=== PATIENT | male | born 2000 | race Caucasian/White ===

== ENCOUNTER 2022-11-12 00:35 | Emergency (ER) | payer SELFPAY ==
[2022-11-12] MEDS ORDERED: Dextrose 50% Abboject 50 ML SYRINGE ONE (00:54)
[2022-11-12] MEDS ORDERED: Lactated Ringer's 1,000 ML ONE (00:58)
[2022-11-12] MEDS ORDERED: Thiamine HCl 200 MG/2 ML VIAL ONE (01:11)
[2022-11-12] MEDS ORDERED: Hydrocortisone Sod Succ/PF 100 mg/2 ml Vial ONE (01:11)
[2022-11-12 01:29] LABS: #Basophils 0.1 thou/uL (0.0-0.2); #Lymphocytes 1.1 thou/uL (1.20-3.40); #Monocytes 1.5 thou/uL (0.11-0.59); #Neutrophils 9.7 thou/uL (1.40-6.50); %Basophils 0.7 % (0.0-1.0); %Eosinophils 0.2 % (0.0-10.0); %Lymphocytes 8.5 % (21.0-51.0); %Monocytes 11.8 % (0.0-10.0); %Neutrophils 78.8 % (42.0-75.0); Hemoglobin 13.3 g/dL (14.0-18.0); Mean Corpuscular Hemoglobin 29.8 pg (27.0-31.0); Mean Corpuscular Volume 87.7 fl (78.0-98.0); Mean Platelet Volume 11.5 fL (7.4-10.4); Platelet Count 229 10x3/uL (130-400); RBC Distribution Width 12.2 % (11.5-14.5); Red Blood Cell (RBC) Count 4.47 mill/uL (4.70-6.10); White Blood Cell (WBC) Count 12.3 10x3/uL (4.8-10.8)
[2022-11-12] MEDS ORDERED: Sodium Chloride 0.9% 100 ML ONE (01:29)
[2022-11-12] MEDS ORDERED: Dextrose 5 % And 0.9 % NaCl 1,000 ML ONE (01:29)
[2022-11-12] MEDS ORDERED: Dextrose 5% in Water 250 ML ONE (01:29)
[2022-11-12] MEDS ORDERED: Vancomycin 1 GM VIAL ONE (01:30)
[2022-11-12] MEDS ORDERED: Cefepime 1 GM VIAL ONE (01:30)
[2022-11-12] MEDS ORDERED: Ondansetron PF 4 MG/2 ML Vial ONE (01:33)
[2022-11-12 01:38] LABS: INR-International Normal Ratio 1.5; Prothrombin Time 19.2 sec (12.0-14.7)
[2022-11-12 01:39] LABS: PTT 52.1 sec (22.9-36.1)
[2022-11-12 01:53] LABS: ALT (SGPT) 16 U/L (8-55); AST (SGOT) 24 U/L (5-34); Albumin 3.9 g/dL (3.5-5.0); Alkaline Phosphatase 62 U/L (40-110); Anion Gap 31 mmol/L (10-20); BUN (Urea Nitrogen) 42 mg/dL (8.9-20.6); Bilirubin, Total 0.6 mg/dL (0.2-1.2); Calc. Creatinine Clearance 0 mL/min (70-130); Calcium 9.9 mg/dL (7.8-10.44); Carbon Dioxide 14 mmol/L (22-29); Chloride 86 mmol/L (98-107); Estimated GFR 28; Globulin 2.8 g/dL (2.4-3.5); Glucose 248 mg/dL (70-105); Lipase 10 U/L (8-78); Magnesium 1.7 mg/dL (1.6-2.6); Potassium 5.9 mmol/L (3.5-5.1); Protein, Total 6.7 g/dL (6.0-8.3); Sodium 125 mmol/L (136-145)
[2022-11-12 02:08] LABS: CKMB 12.2 ng/mL (0-6.6)
[2022-11-12 02:29] LABS: SARS-CoV-2 NAA Rapid Test Not Detected (NotDetected)
[2022-11-12] MEDS ORDERED: Insulin Regular 300 UNITS/3 ML VIAL ONE (02:40)
[2022-11-12] MEDS ORDERED: INSULIN REGULAR IN 0.9 % NACL 100 UNITS/100 ML BAG ONE (03:05)
[2022-11-12 03:07] LABS: Base Excess-Venous -12.9 mmol/L (-2.0 to 3.0); Bicarbonate (HCO3v) 13.7 mmol/L (22.0-28.0); CO2 Tension (PvCO2) 33.2 mmHg (42.0-51.0)
[2022-11-12 03:08] LABS: Calcium, Ionized 0.94 mmol/L (1.15-1.33); Chloride 94 mmol/L (98-107); Hemoglobin - Calc 10.6 g/dL (14.0-18.0); Potassium 5.4 mmol/L (3.5-5.1); Sodium 120 mmol/L (138-145); T. Carbon Dioxide 14.7 mmol/L (22.0-28.0); vO2 Saturation-calc 74.4 % (60.0-85.0)
[2022-11-12 03:25] LABS: Acetaminophen Less than 10.0 mcg/mL (10.0-30.0); Alcohol Less than 10 mg/dL (Less than 10); Salicylate Less than 8.0 mg/dL (15.0-30.0)
[2022-11-12 04:06] LABS: Bilirubin Negative (Negative); Blood, Urine Moderate (Negative); Clarity Clear (Clear); Glucose, Urine (Dipstick) 500 mg/dL (Negative); Ketone, Urine > or equal to 80 mg/dL (Negative); Leukocyte Negative (Negative); Nitrite Negative (Negative); Protein, Urine (Dipstick) Trace mg/dL (Neg-Trace); Urobilinogen 0.2 mg/dL (Less than 2)
[2022-11-12 04:09] LABS: Squamous Epithelial 0-3 HPF (0-3); WBC/HPF 0-3 HPF (0-3)
[2022-11-12 04:10] LABS: RBC/HPF 0-3 HPF (0-3)
[2022-11-12 04:14] LABS: Amphetamine Not Detected (NotDetected); Barbiturates Screen Not Detected (NotDetected); Benzodiazepine Screen Not Detected (NotDetected); Cocaine Metabolite Screen Not Detected (NotDetected); Methadone Not Detected (NotDetected); Methamphetamine Not Detected (NotDetected); Opiate Screen Not Detected (NotDetected); Oxycodone Screen Not Detected (NotDetected); Phencyclidine (PCP) Not Detected (NotDetected); THC/Cannabinoid Screen Not Detected (NotDetected); Tricyclic Screen Not Detected (NotDetected)
[2022-11-12 04:29] LABS: Lactic Acid 1.3 mmol/L (0.5-2.2)
[2022-11-12 04:31] LABS: Anion Gap 23 mmol/L (10-20); BUN (Urea Nitrogen) 40 mg/dL (8.9-20.6); Calc. Creatinine Clearance 0 mL/min (70-130); Calcium 8.5 mg/dL (7.8-10.44); Carbon Dioxide 14 mmol/L (22-29); Chloride 94 mmol/L (98-107); Estimated GFR 36; Glucose 352 mg/dL (70-105); Potassium 4.3 mmol/L (3.5-5.1); Sodium 127 mmol/L (136-145)
[2022-11-12] MEDS ORDERED: Sodium Chloride 0.9% 1,000 ML BAG ONE (08:49)
== END 2022-11-12 04:44 | disposition short-term general hospital (02) ==
LOC: MADERS 00:35
DX: A41.9 Sepsis, unspecified organism (principal); N17.9 Acute kidney failure, unspecified; E10.10 Type 1 diabetes mellitus with ketoacidosis without coma; R77.8 Other specified abnormalities of plasma proteins; E03.9 Hypothyroidism, unspecified; Z79.4 Long term (current) use of insulin; Z79.899 Other long term (current) drug therapy; Z20.822 Contact with and (suspected) exposure to COVID-19
CPT/HCPCS: 36416; 71045; 74176; 80053; 80306; 80307; 81003; 81015; 82010; 82330; 82550; 82553; 82803; 83605; 83690; 83735; 84443; 84484; 85025; 85610; 85730; 87040; 87086; 93005; 94760; 96361; 96365; 96367; 96375; 36415-59; J0692; J1720; J1815; J2405; J3370; J3411; J3490; J7042; J7050; J7070; J7120; J7999